=== PATIENT | female | born 1955 | race Caucasian/White ===

== ENCOUNTER 2017-04-05 12:44 | Emergency (ER) | payer BC, OTHER ==
[~2017-04-05] VITALS: Ht 162.6 cm; Wt 66.2 kg
[2017-04-05 14:51] LABS: Basophils # (auto) 0 uL; Basophils % (auto) 0.3 % (0.0-2.0); CONDITION Y; DEFINITIVE SEE PRINTOUT; Eosinophils # (auto) 0 uL; Eosinophils % (auto) 0.3 % (0.0-7.0); Hematocrit 40.5 % (36.0-46.0); Hemoglobin 13.7 g/dL (12.2-16.2); Lymphocytes % (auto) 12.4 % (10.0-50.0); Mean Corpuscular Hemoglobin 34.6 pg (28.0-32.0); Mean Corpuscular Hgb Conc. 33.8 g/dL (32.0-36.0); Mean Corpuscular Volume 102.6 fL (80.0-100.0); Mean Platelet Volume 9.1 fL (7.4-10.4); Monocytes # (auto) 0.3 uL; Monocytes % (auto) 4.4 % (0.0-12.0); Neutrophils # (auto) 6.5 uL; Neutrophils % (auto) 82.6 % (37.0-80.0); Platelet Count (auto) 194 10^3/uL (140-450); Red Cell Distribution Width 15.5 % (11.6-16.0); White Blood Cell 7.9 10^3/uL (4.4-10.8)
[2017-04-05 15:09] LABS: Chloride 107 mmol/L (98-107); Sodium 142 mmol/L (136-145)
[2017-04-05 15:15] LABS: Albumin 3.8 g/dL (3.4-5.0); Anion Gap 9 (5-15); Aspartate Aminotransferase 17 U/L (15-37); BUN/Creatinine Ratio 17.8; Blood Urea Nitrogen 8 mg/dL (7-18); Calcium 8.6 mg/dL (8.5-10.1); Carbon Dioxide 26 mmol/L (21-32); GFR African American 183 mL/min; GFR Non-African American 151 mL/min; Glucose 89 mg/dL (74-106); Magnesium 2.3 mg/dL (1.6-2.6)
[2017-04-05 15:17] LABS: Alkaline Phosphatase 81 U/L (45-117); Bilirubin, Total 0.7 mg/dL (0.2-1.0); Total Protein 6.8 g/dL (6.4-8.2)
[2017-04-05] MEDS ORDERED: SODIUM CHLORIDE 0.9% 1,000 ML IV ONE (15:30)
[2017-04-05 15:42] VITALS: BP 158/106
[2017-04-05 16:14] LABS: Urine Bilirubin Negative (Negative); Urine Blood Negative /uL (Negative); Urine Color Yellow (Yellow); Urine Glucose Normal (Normal); Urine Ketone 1+ (Negative); Urine Mucus FEW (None Seen); Urine Nitrite Negative (Negative); Urine RBC <1 /hpf (0 - 4); Urine Squamous Epithelial Cell FEW /hpf (<5); Urine Urobilinogen Normal (Negative); Urine pH 6.5 (5.0-8.0)
[2017-04-05] MEDS ORDERED: MORPHINE SULFATE 4 MG/ML SYRG ONE (20:56)
[2017-04-05] MEDS ORDERED: ONDANSETRON HCL 4 MG/2 ML VIAL ONE (20:56)
== END 2017-04-05 17:06 | disposition home or self-care (01) ==
LOC: ER 12:50
DX: R55 Syncope and collapse (principal); F12.10 Cannabis abuse, uncomplicated; J44.9 Chronic obstructive pulmonary disease, unspecified; K21.9 Gastro-esophageal reflux disease without esophagitis; F03.90 Unspecified dementia, unspecified severity, without behavioral disturbance, psychotic disturbance, mood disturbance, and anxiety; F17.200 Nicotine dependence, unspecified, uncomplicated; Z88.8 Allergy status to other drugs, medicaments and biological substances
CPT/HCPCS: 36415; 70450; 71010; 80053; 80307; 80320; 81001; 83735; 84484; 85025; 93005; 96360; 99285; J2270; J2405; J7030

== ENCOUNTER 2017-04-05 18:45 | Inpatient (IN) | payer BC ==
[~2017-04-05] VITALS: Ht 162.6 cm; Wt 66.0 kg
[2017-04-05] MEDS ORDERED: ONDANSETRON HCL 4 MG/2 ML VIAL IV ONE (21:00)
[2017-04-05] MEDS ORDERED: MORPHINE SULFATE 4 MG/ML SYRG IV ONE (21:00)
[2017-04-05] MEDS ORDERED: LEVETIRACETAM INJ 1,000 MG in SODIUM CHL 0.9% 100 ML IV ONE (21:00)
[2017-04-05] MEDS ORDERED: LEVETIRACETAM 500 MG/5ML INJ IV ONE (21:16)
[2017-04-06] MEDS ORDERED: MORPHINE SULF INJ 2 MG/ML SYRINGE 1ML IV ONE (00:45)
[2017-04-06] MEDS ORDERED: ONDANSETRON HCL 4 MG/2 ML VIAL IV ONE (00:45)
[2017-04-06] MEDS ORDERED: TEMAZEPAM 15 MG CAP PO PRN (01:15)
[2017-04-06] MEDS ORDERED: ONDANSETRON HCL 4 MG/2 ML VIAL IV PRN (01:15)
[2017-04-06] MEDS ORDERED: HYDROcodone-ACET 5/325MG TAB PO PRN (01:15)
[2017-04-06] MEDS ORDERED: ALPRAZolam 0.5 MG TAB PO PRN (01:15)
[2017-04-06] MEDS ORDERED: LACTULOSE 20Gm/30ML SOLN PO PRN (01:15)
[2017-04-06] MEDS ORDERED: ACETAMINOPHEN 500 MG TAB PO PRN (01:15)
[2017-04-06] MEDS ORDERED: LORazepam 2MG/ML-1ML VIAL IV PRN (01:15)
[2017-04-06 03:00] VITALS: BP 140/81
[2017-04-06 05:00] VITALS: BP 140/81
[2017-04-06] MEDS: GABAPENTIN 100 MG CAP PO SCH ×2 (06:20→14:53)
[2017-04-06 08:28] LABS: Basophils # (auto) 0 uL; Basophils % (auto) 0.3 % (0.0-2.0); CONDITION Y; DEFINITIVE SEE PRINTOUT; Eosinophils # (auto) 0 uL; Eosinophils % (auto) 0.4 % (0.0-7.0); Hematocrit 37.5 % (36.0-46.0); Hemoglobin 12.6 g/dL (12.2-16.2); Lymphocytes # (auto) 1.5 uL; Lymphocytes % (auto) 17.5 % (10.0-50.0); Mean Corpuscular Hemoglobin 34.4 pg (28.0-32.0); Mean Corpuscular Hgb Conc. 33.5 g/dL (32.0-36.0); Mean Corpuscular Volume 102.6 fL (80.0-100.0); Mean Platelet Volume 8.5 fL (7.4-10.4); Monocytes # (auto) 0.6 uL; Monocytes % (auto) 7.1 % (0.0-12.0); Neutrophils # (auto) 6.5 uL; Neutrophils % (auto) 74.7 % (37.0-80.0); Platelet Count (auto) 184 10^3/uL (140-450); Red Cell Distribution Width 15.1 % (11.6-16.0); White Blood Cell 8.7 10^3/uL (4.4-10.8)
[2017-04-06 08:49] LABS: Calcium 8.7 mg/dL (8.5-10.1); Potassium 4.3 mmol/L (3.5-5.1)
[2017-04-06 08:57] LABS: B-Type Natriuretic Peptide 92.1 pg/mL (0-100); Temperature: 23.7 C (20.0-25.0)
[2017-04-06 09:27] VITALS: BP 139/76
[2017-04-06] MEDS ORDERED: LEVETIRACETAM 500 MG TAB PO SCH (10:00)
[2017-04-06] MEDS ORDERED: PNEUMOCOCCAL VACC POLYS 25 MCG/0.5 ML VIAL IM ONE (10:00)
[2017-04-06] MEDS ORDERED: MORPHINE SULF 30 mg ER tab PO SCH (10:00)
[2017-04-06] MEDS ORDERED: PANTOPRAZOLE 40 MG TAB PO SCH (10:00)
[2017-04-06] MEDS ORDERED: SERTRALINE HCL 50 MG TAB PO SCH (10:00)
[2017-04-06 12:54] VITALS: BP 124/76
== END 2017-04-06 16:43 | disposition short-term general hospital (02) | DRG 101 ==
LOC: EDUNIT# 18:45 → EDBD 18:45 → ER 18:51 → OVERFLOW 18:52 → CENTRAL 04-06 03:00
PROVIDERS: ADMIT Nurse Practitioner Family; ATTEND Nurse Practitioner Family
DX: R56.9 Unspecified convulsions (principal); F03.90 Unspecified dementia, unspecified severity, without behavioral disturbance, psychotic disturbance, mood disturbance, and anxiety; Q85.9 Phakomatosis, unspecified; J44.9 Chronic obstructive pulmonary disease, unspecified; G89.29 Other chronic pain; K21.9 Gastro-esophageal reflux disease without esophagitis; F32.9 Major depressive disorder, single episode, unspecified; F41.9 Anxiety disorder, unspecified; M54.5 Low back pain
CPT/HCPCS: 36415; 80048; 83880; 85025; 85652; 96365; 96375; 96376; J2405

== ENCOUNTER → 2019-02-25 | Outpatient (CLI) | payer MEDICARE ==
[2019-02-25 09:24] LABS: Basophils # (auto) 0 uL; Eosinophils # (auto) 0.1 uL; Eosinophils % (auto) 1.7 % (0.0-7.0); Hemoglobin 13.7 g/dL (12.2-16.2); Lymphocytes # (auto) 1.5 uL; Monocytes # (auto) 0.4 uL; Platelet Count (auto) 177 10^3/uL (140-450)
[2019-02-25 09:27] LABS: Lymphocytes % (auto) 30.3 % (10.0-50.0); Mean Corpuscular Hemoglobin 35.1 pg (28.0-32.0); Mean Corpuscular Hgb Conc. 35.2 g/dL (32.0-36.0); Mean Corpuscular Volume 99.7 fL (80.0-100.0); Monocytes % (auto) 8.2 % (0.0-12.0); Neutrophils # (auto) 2.9 uL; Neutrophils % (auto) 58.8 % (37.0-80.0); Red Blood Cells 3.91 10^6/uL (4.0-5.20); Red Cell Distribution Width 13.9 % (11.8-14.3); White Blood Cell 4.9 10^3/uL (4.4-10.8)
[2019-02-25 09:50] LABS: Alcohol, Urine < 3.0 mg/dL (0-5); Amphetamine Screen, Urine NEGATIVE (NEGATIVE); Barbiturate Scree,Urine NEGATIVE (NEGATIVE); Benzodiazephine Screen, Urine POSITIVE (NEGATIVE); Cannabinoid Screen, Urine POSITIVE (NEGATIVE); Cocaine Screen, Urine NEGATIVE (NEGATIVE); Opiate Scree,Urine POSITIVE (NEGATIVE); Phencyclidine Screen, Urine NEGATIVE (NEGATIVE)
[2019-02-25 09:55] LABS: Urine Bacteria FEW /hpf (None Seen); Urine Blood Negative /uL (Negative); Urine Specific Gravity 1.005 (1.001-1.035); Urine WBC 1 /hpf (0 - 5)
[2019-02-25 09:58] LABS: Albumin 3.8 g/dL (3.4-5.0); BUN/Creatinine Ratio 9.1; Bilirubin, Total 0.6 mg/dL (0.2-1.0); Calcium 8.7 mg/dL (8.5-10.1)
== END | disposition home or self-care (01) ==
LOC: LAB 08:43
DX: G89.4 Chronic pain syndrome (principal); G47.00 Insomnia, unspecified; E78.1 Pure hyperglyceridemia; J44.9 Chronic obstructive pulmonary disease, unspecified; K21.9 Gastro-esophageal reflux disease without esophagitis; R79.89 Other specified abnormal findings of blood chemistry; E55.9 Vitamin D deficiency, unspecified; Z87.891 Personal history of nicotine dependence
CPT/HCPCS: 36415; 80053; 80061; 80307; 81001; 82306; 82607; 83036; 85025

== ENCOUNTER 2021-02-08 13:16 | Emergency (ER) | payer BC, MEDICARE ==
[~2021-02-08] VITALS: Ht 162.6 cm; Wt 63.5 kg
[2021-02-08 14:29] VITALS: BP 114/79
== END 2021-02-08 14:40 | disposition home or self-care (01) ==
LOC: ER 13:16
DX: S05.41XA Penetrating wound of orbit with or without foreign body, right eye, initial encounter (principal); J44.9 Chronic obstructive pulmonary disease, unspecified; K21.9 Gastro-esophageal reflux disease without esophagitis; F17.210 Nicotine dependence, cigarettes, uncomplicated; Z90.49 Acquired absence of other specified parts of digestive tract; Z88.5 Allergy status to narcotic agent; Z88.8 Allergy status to other drugs, medicaments and biological substances; W05.0XXA Fall from non-moving wheelchair, initial encounter; Y93.89 Activity, other specified; Y92.89 Other specified places as the place of occurrence of the external cause; Y99.8 Other external cause status
CPT/HCPCS: 70450

== ENCOUNTER 2023-04-30 20:06 | Inpatient (IN) | payer BC, MEDICARE ==
[~2023-04-30] VITALS: Ht 165.1 cm; Wt 83.0 kg
[2023-04-30 20:26] VITALS: PULSE 98; RESP 18; O2SAT 94
[2023-04-30] MEDS ORDERED: MORPHINE SULFATE 4 MG/ML SYR/VIAL IV ONE (20:30)
[2023-04-30] MEDS ORDERED: ONDANSETRON HCL 4 MG/2 ML VIAL ONE (21:04)
[2023-04-30] MEDS ORDERED: ONDANSETRON HCL 4 MG/2 ML VIAL IV ONE (21:15)
[2023-04-30 21:25] LABS: Basophils # (auto) 0 10 ^3/uL (0-0.2); Eosinophils # (auto) 0 10 ^3/uL (0-0.8); Eosinophils % (auto) 0.3 % (0.0-7.0); Neutrophils # (auto) 7.4 10 ^3/uL (1.6-8.6)
[2023-04-30 21:28] LABS: Basophils % (auto) 0.3 % (0.0-2.0); Hematocrit 47.8 % (36.0-46.0); Hemoglobin 16.2 g/dL (12.2-16.2); Lymphocytes # (auto) 0.8 10 ^3/uL (0.4-5.4); Lymphocytes % (auto) 9.6 % (10.0-50.0); Mean Corpuscular Hemoglobin 36.6 pg (28.0-32.0); Mean Corpuscular Hgb Conc. 33.8 g/dL (32.0-36.0); Mean Corpuscular Volume 108.4 fL (80.0-100.0); Monocytes # (auto) 0.5 10 ^3/uL (0-1.3); Monocytes % (auto) 5.3 % (0.0-12.0); Neutrophils % (auto) 84.5 % (37.0-80.0); Nucleated Red Blood Cells % 0.2 %; Red Blood Cells 4.41 10^6/uL (4.0-5.20); Red Cell Distribution Width 14.5 % (11.8-14.3); White Blood Cell 8.8 10^3/uL (4.4-10.8)
[2023-04-30 21:32] LABS: Alanine Aminotransferase 51 U/L (7-40); Albumin 4.2 g/dL (3.2-4.8); Alkaline Phosphatase 72 U/L (46-116); Anion Gap 9 (5-15); Aspartate Aminotransferase 48 U/L (13-40); BUN/Creatinine Ratio 8.3 (10.0-20.0); Bilirubin, Total 1.3 mg/dL (0.2-1.0); Blood Urea Nitrogen 6 mg/dL (9-23); Calcium 9.5 mg/dL (8.5-10.1); Carbon Dioxide 25 mmol/L (20-30); Chloride 103 mmol/L (98-107); Glucose 171 mg/dL (74-106); Potassium 3.5 mmol/L (3.5-5.1); Sodium 137 mmol/L (136-145); Total Protein 6.9 g/dL (5.7-8.2)
[2023-04-30] MEDS ORDERED: LEVE500T40 PO (21:49)
[2023-04-30 22:28] VITALS: O2SAT 96
[2023-04-30] MEDS ORDERED: ALBUTEROL SULF 2.5 MG/0.5ML(0.5%) NEB SOLN NEB ONE (22:30)
[2023-04-30] MEDS ORDERED: IPRATROPIUM BROM 0.5 MG/2.5ML INH SOL NEB ONE (22:30)
[2023-04-30] MEDS ORDERED: predniSONE 20 MG TAB PO ONE (22:30)
[2023-04-30 22:46] LABS: COVID19 ANTIGEN SOFIA FIA NEGATIVE (NEGATIVE)
[2023-04-30] MEDS ORDERED: AZITHROMYCIN 250 MG TAB PO ONE (23:15)
[2023-04-30] MEDS ORDERED: cefTRIAXone SOD 1,000 MG VL IV ONE (23:15)
[2023-05-01] VITALS (8 sets, daily range): BP systolic 109–136; BP diastolic 64–79; PULSE 68–88; RESP 16–19; TEMP 97.9–98.3; O2SAT 92–100
[2023-05-01] MEDS ORDERED: DOCUSATE SOD 100 MG CAP PO PRN
[2023-05-01] MEDS ORDERED: IBUPROFEN 600 MG TAB PO PRN
[2023-05-01] MEDS ORDERED: ALBUTEROL SULF 2.5 MG/0.5ML(0.5%) NEB SOLN NEB PRN
[2023-05-01] MEDS ORDERED: ONDANSETRON HCL 4 MG/2 ML VIAL IV PRN
[2023-05-01] MEDS ORDERED: IPRATROPIUM BROM 0.5 MG/2.5ML INH SOL NEB PRN
[2023-05-01] MEDS ORDERED: IOHEXOL 350 MG/ML 100ML IJ ONE (00:10)
[2023-05-01] MEDS: ONDANSETRON HCL 4 MG/2 ML VIAL IV PRN ×2 (01:24→05:30)
[2023-05-01] MEDS: MORPHINE SULFATE INJ 2 MG/ml SYRG IV PRN ×4 (01:24→22:23)
[2023-05-01 02:13] LABS: Urine Bacteria NONE SEEN /hpf (None Seen); Urine Blood Negative /uL (Negative); Urine Clarity Clear (Clear); Urine Color Yellow (Yellow); Urine Hyaline Cast FEW /lpf (0 - 2); Urine Mucus FEW (None Seen); Urine Protein, UAD TRACE (Negative); Urine Specific Gravity 1.007 (1.001-1.035); Urine Urobilinogen Normal (Negative); Urine WBC 1 /hpf (0 - 5); Urine pH 5.5 (5.0-8.0)
[2023-05-01] MEDS ORDERED: NITROGLYCERIN 0.4 MG SL TAB SL PRN (03:15)
[2023-05-01] MEDS ORDERED: MORPHINE SULFATE INJ 2 MG/ml SYRG IV PRN (03:15)
[2023-05-01] MEDS: methylPREDNISolone SOD SUCC 40 MG/ML VL IV SCH ×3 (05:34→22:00)
[2023-05-01] MEDS: SODIUM CHLOR 0.9% PF (SALINE LOCK) 10ML VIAL/SYR IV SCH ×3 (05:34→22:01)
[2023-05-01 06:14] LABS: Hematocrit 45.2 % (36.0-46.0); Hemoglobin 15.8 g/dL (12.2-16.2); White Blood Cell 10.7 10^3/uL (4.4-10.8)
[2023-05-01 06:16] LABS: Mean Corpuscular Hemoglobin 37.2 pg (28.0-32.0); Mean Corpuscular Volume 106.5 fL (80.0-100.0); Red Blood Cells 4.24 10^6/uL (4.0-5.20); Red Cell Distribution Width 14.2 % (11.8-14.3)
[2023-05-01 06:27] LABS: Alanine Aminotransferase 48 U/L (7-40); Albumin 4.2 g/dL (3.2-4.8); Alkaline Phosphatase 67 U/L (46-116); Anion Gap 8 (5-15); Aspartate Aminotransferase 39 U/L (13-40); BUN/Creatinine Ratio 8.8 (10.0-20.0); Bilirubin, Total 1.1 mg/dL (0.2-1.0); Blood Urea Nitrogen 6 mg/dL (9-23); Calcium 9.5 mg/dL (8.5-10.1); Carbon Dioxide 28 mmol/L (20-30); Chloride 101 mmol/L (98-107); Glucose 140 mg/dL (74-106); Potassium 3.7 mmol/L (3.5-5.1); Sodium 137 mmol/L (136-145); Total Protein 6.9 g/dL (5.7-8.2)
[2023-05-01 06:31] LABS: Band Neutrophils % (manual) 0; Basophils % (manual) 0 (0.0-2.0); Blast Cells 0; Eosinophils % (manual) 0 (0-7); Metamyelocytes % 0; Monocytes % (manual) 0 (0-12); Myelocytes % 0; Promyelocytes % 0; Reactive Lymphocytes 0
[2023-05-01 07:50] LABS: INR 1.03 (0.9-1.15); Partial Thromboplastin Time 28.9 SEC (24.5-34.5); Prothrombin Time 10.8 sec (9.3-11.8)
[2023-05-01 08:54] LABS: Lymphocytes % (manual) 5 (10.0-50.0); Platelet Estimate Decreased
[2023-05-01] MEDS: ASPirin 81 mg TAB PO SCH (10:20)
[2023-05-01] MEDS: FAMOTIDINE (10MG/ML) 2ML VL IV SCH ×2 (10:24→22:00)
[2023-05-01] MEDS ORDERED: levETIRAcetam 500 MG/5ML INJ IV ONE (10:35)
[2023-05-01] MEDS: AZITHROMYCIN 500MG/ 250ML 250 ML IV SCH (10:49)
[2023-05-01 11:32] LABS: Magnesium 1.8 mg/dL (1.6-2.6)
[2023-05-01] MEDS ORDERED: ALBUAER3 INH (12:17)
[2023-05-01] MEDS ORDERED: CLOT1CRE7 TOP (12:17)
[2023-05-01] MEDS ORDERED: ALPR1TAB7 PO (12:17)
[2023-05-01] MEDS ORDERED: SERT-377 PO (12:19)
[2023-05-01] MEDS ORDERED: MORP30TA PO (12:20)
[2023-05-01] MEDS ORDERED: ZOFR4T PO (12:22)
[2023-05-02] VITALS (10 sets, daily range): BP systolic 111–122; BP diastolic 65–73; PULSE 55–89; RESP 16–20; TEMP 98–98.5; O2SAT 92–96
[2023-05-02] MEDS: methylPREDNISolone SOD SUCC 40 MG/ML VL IV SCH ×3 (06:34→21:59)
[2023-05-02] MEDS: SODIUM CHLOR 0.9% PF (SALINE LOCK) 10ML VIAL/SYR IV SCH ×3 (06:37→22:13)
[2023-05-02 07:00] LABS: Basophils # (auto) 0 10 ^3/uL (0-0.2); Eosinophils # (auto) 0 10 ^3/uL (0-0.8); Eosinophils % (auto) 0.1 % (0.0-7.0); Hematocrit 45.1 % (36.0-46.0); Hemoglobin 15.1 g/dL (12.2-16.2); Lymphocytes # (auto) 0.5 10 ^3/uL (0.4-5.4); Nucleated Red Blood Cells % 0.1 %
[2023-05-02 07:02] LABS: Lymphocytes % (auto) 5.3 % (10.0-50.0); Mean Corpuscular Hemoglobin 36.8 pg (28.0-32.0); Mean Corpuscular Hgb Conc. 33.5 g/dL (32.0-36.0); Mean Corpuscular Volume 109.7 fL (80.0-100.0); Monocytes # (auto) 0.3 10 ^3/uL (0-1.3); Monocytes % (auto) 3.4 % (0.0-12.0); Neutrophils # (auto) 9.2 10 ^3/uL (1.6-8.6); Neutrophils % (auto) 91.2 % (37.0-80.0); Red Blood Cells 4.11 10^6/uL (4.0-5.20); Red Cell Distribution Width 14.3 % (11.8-14.3); White Blood Cell 10.1 10^3/uL (4.4-10.8)
[2023-05-02 08:40] LABS: Anion Gap 7 (5-15); Calcium 9.3 mg/dL (8.5-10.1); Carbon Dioxide 28 mmol/L (20-30); Chloride 102 mmol/L (98-107); Potassium 4.2 mmol/L (3.5-5.1); Sodium 137 mmol/L (136-145)
[2023-05-02 08:47] LABS: BUN/Creatinine Ratio 16.7 (10.0-20.0); Blood Urea Nitrogen 10 mg/dL (9-23); Glucose 125 mg/dL (74-106)
[2023-05-02] MEDS: FAMOTIDINE (10MG/ML) 2ML VL IV SCH ×2 (09:41→21:59)
[2023-05-02] MEDS: AZITHROMYCIN 500MG/ 250ML 250 ML IV SCH (09:41)
[2023-05-02] MEDS: ASPirin 81 mg TAB PO SCH (09:41)
[2023-05-02 13:51] LABS: Base Excess 2.9 mmol/L (-2.0-2.0)
[2023-05-03] VITALS (8 sets, daily range): BP systolic 116–123; BP diastolic 67–72; PULSE 55–76; RESP 17–20; TEMP 36.7; O2SAT 92–98
[2023-05-03 05:55] LABS: Basophils # (auto) 0 10 ^3/uL (0-0.2); Eosinophils # (auto) 0 10 ^3/uL (0-0.8); Monocytes # (auto) 0.4 10 ^3/uL (0-1.3); White Blood Cell 8.8 10^3/uL (4.4-10.8)
[2023-05-03 05:58] LABS: Basophils % (auto) 0.1 % (0.0-2.0); Hematocrit 43.9 % (36.0-46.0); Lymphocytes # (auto) 0.5 10 ^3/uL (0.4-5.4); Lymphocytes % (auto) 5.2 % (10.0-50.0); Mean Corpuscular Hgb Conc. 34.2 g/dL (32.0-36.0); Mean Corpuscular Volume 108.4 fL (80.0-100.0); Monocytes % (auto) 4.1 % (0.0-12.0); Neutrophils % (auto) 90.6 % (37.0-80.0); Nucleated Red Blood Cells % 0.1 %; Red Blood Cells 4.05 10^6/uL (4.0-5.20); Red Cell Distribution Width 14.3 % (11.8-14.3)
[2023-05-03 06:06] LABS: Chloride 103 mmol/L (98-107); Potassium 4.2 mmol/L (3.5-5.1); Sodium 138 mmol/L (136-145)
[2023-05-03 06:07] LABS: Anion Gap 5 (5-15); Carbon Dioxide 30 mmol/L (20-30)
[2023-05-03 06:08] LABS: Calcium 9.1 mg/dL (8.7-10.4)
[2023-05-03 06:12] LABS: Blood Urea Nitrogen 12 mg/dL (9-23); Glucose 124 mg/dL (74-106)
[2023-05-03] MEDS: methylPREDNISolone SOD SUCC 40 MG/ML VL IV SCH (06:19)
[2023-05-03] MEDS: SODIUM CHLOR 0.9% PF (SALINE LOCK) 10ML VIAL/SYR IV SCH ×2 (06:24→14:00)
[2023-05-03] MEDS: FAMOTIDINE (10MG/ML) 2ML VL IV SCH (10:44)
[2023-05-03] MEDS: ASPirin 81 mg TAB PO SCH (10:44)
[2023-05-03] MEDS: AZITHROMYCIN 500MG/ 250ML 250 ML IV SCH (11:00)
[2023-05-03] MEDS ORDERED: AZITHROMYCIN 250 MG TAB PO SCH (11:15)
[2023-05-03] MEDS ORDERED: levETIRAcetam 500 MG TAB PO SCH (11:15)
[2023-05-03] MEDS ORDERED: AZIT-43 PO (11:16)
[2023-05-03] MEDS ORDERED: PRED20TA2 PO (11:16)
[2023-05-03] MEDS ORDERED: predniSONE 20 MG TAB PO SCH (14:00)
== END 2023-05-03 17:20 | disposition home or self-care (01) | DRG 100 ==
LOC: EDBD 20:06 → ER 20:06 → TELE 05-01 03:19 → TELE-WESTW 05-01 12:06
PROVIDERS: ADMIT Nurse Practitioner Family; ATTEND Internal Medicine Pulmonary Disease
DX: G40.909 Epilepsy, unspecified, not intractable, without status epilepticus (principal); J96.01 Acute respiratory failure with hypoxia; J44.0 Chronic obstructive pulmonary disease with (acute) lower respiratory infection; J44.1 Chronic obstructive pulmonary disease with (acute) exacerbation; F03.94 Unspecified dementia, unspecified severity, with anxiety; R73.9 Hyperglycemia, unspecified; F17.210 Nicotine dependence, cigarettes, uncomplicated; E66.9 Obesity, unspecified; F32.A Depression, unspecified; G89.29 Other chronic pain; D18.09 Hemangioma of other sites; K21.9 Gastro-esophageal reflux disease without esophagitis; Z20.822 Contact with and (suspected) exposure to COVID-19; Z90.710 Acquired absence of both cervix and uterus; Z88.8 Allergy status to other drugs, medicaments and biological substances; Z88.5 Allergy status to narcotic agent; Z68.30 Body mass index [BMI] 30.0-30.9, adult
CPT/HCPCS: 36415; 36600; 70450; 71045; 71275; 80048; 80053; 80061; 81001; 82542; 82805; 83036; 83735; 83880; 84443; 85007; 85025; 85027; 85379; 85610; 85730; 87426; 93306; 94640; 96365; 96375; G0378; J0696; J2405; J3490; J7060

== ENCOUNTER 2023-10-18 12:41 | Emergency (ER) | payer MEDICARE ==
[~2023-10-18] VITALS: Ht 162.6 cm; Wt 67.0 kg
[~2023-10-18 12:41] MED LIST: ALBUAER3 INH; ALPR1TAB7 PO; AZIT-43 PO; CLOT1CRE7 TOP; LEVE500T40 PO; MORP30TA PO; PRED20TA2 PO; SERT-377 PO; ZOFR4T PO
[2023-10-18 12:56] VITALS: BP 140/76; PULSE 92; RESP 18; O2SAT 88
== END 2023-10-18 14:52 | disposition left against medical advice (07) ==
LOC: ER 12:41
DX: M54.50 Low back pain, unspecified (principal); Z53.21 Procedure and treatment not carried out due to patient leaving prior to being seen by health care provider